=== PATIENT | male | born 1950 | race Caucasian/White ===

== ENCOUNTER 2018-08-18 18:34 | Emergency (ER) | payer OTHER ==
[~2018-08-18] VITALS: Ht 177.8 cm; Wt 100.0 kg
[~2018-08-18 18:34] MED LIST: METF-406 PO; ROSU40TA35 PO
[2018-08-18 18:39] VITALS: Ht 177.8 cm; Wt 100.0 kg
[2018-08-18] MEDS ORDERED: IBUP-1542 PO (21:23)
[2018-08-18 21:35] VITALS: BP 134/78; PULSE 71; RESP 18
--- NOTE | 2018-08-23 17:01 | ERD ---
ER Documentation Chief Complaint Chief Complaint SENT BY URGENT CARE TO R/O DVT HPI History of Present Illness: 67-year-old male reports a past medical history of sleep apnea, diabetes, hypertension, hyperlipidemia, cardiac stent placement x3 coming in today due to right calf swelling and redness. Patient was sent by urgent care to rule out DVT. D-dimer done in urgent care was 1260. Patient reports that he has had intermittent calf swelling over the past week after having an injury to the extremity in which he " banged it on something" . Patient denies recent travel or extended periods of being sedentary. Denies recent surgeries. At home pharmacological/nonpharmacological treatment for symptoms: Denies Denies social concerns; Denies recent foreign travel ROS All systems reviewed and are negative except as per history of present illness. Medications Home Meds Active Scripts Ibuprofen* (Motrin*) 600 Mg Tab, 600 MG PO Q6H PRN for PAIN/SWELLING/INFLAMMATION, #30 TAB Prov:CHEMO PAYNE V [employer] 08/18/18 Reported Medications Metformin Hcl* (Metformin Hcl* ER) 1,000 Mg Tab.er.24, 1000 MG PO BID 09/25/12 Rosuvastatin Calcium* (Crestor*) 40 Mg Tablet, 40 MG PO DAILY 09/25/12 Allergies Allergies: Coded Allergies: No Known Allergy (Verified Allergy, Unknown, 06/08/06) PMhx/Soc History of Surgery: Yes Hx Cardiac Disorders: Yes (3 CARDIAC STENT. HIGH CHOLESTEROL.) Hx Miscellaneous Medical Probl: Yes (DM. ) Hx Alcohol Use: Yes Hx Substance Use: No Hx Tobacco Use: No Smoking Status: Never smoker FmHx Family History: diabetes, coronary disease Physical Exam Physical Exam Const: No acute distress, afebrile Head: Atraumatic Eyes: Normal Conjunctiva ENT: Normal External Ears, Nose and Mouth. Neck: Full range of motion. No meningismus. Resp: Clear to auscultation bilaterally Cardio: Regular rate and rhythm, no murmurs Abd: Soft, non tender, non distended. No guarding, no masses, no rigidity Skin: No petechiae or rashes Back: No midline or flank tenderness Ext: No cyanosis; redness and swelling noted to right lower extremity particularly the calf, no warmth Neur: Awake and alert x3, speaking in clear sentences, no focal deficits or facial asymmetry Psych: Normal Mood and Affect Procedures/MDM ED COURSE: ED course includes a thorough examination and history. The patient was stable throughout ED course. I kept the patient and/or family informed of laboratory and diagnostic imaging results throughout the ED course. LABS: None MEDICATIONS GIVEN IN ER: Patient denies need for pain medication DIAGNOSTIC IMAGING: Read by radiologist. IMPRESSION: 1. Negative right lower extremity venous duplex. 2. Poorly visualized right peroneal vein. RPTAT: HLRS Physician Noah Date Time Electronically viewed and signed by Physician Noah on 08/18/2018 21:02 PROCEDURES: None. MEDICAL DECISION MAKING: Low suspicion for life-threatening medical emergency. Case discussed with ED Dr. Hannah. Although right peroneal vein is not visualized, agrees with study that patient does not present with signs and symptoms of DVT. patient presenting with constellation of symptoms likely representing swelling of right extremity secondary to injury of right leg as characterized by history, physical exam findings, imaging findings. Patient reassessment @ 2124: Results discussed. Patient hemodynamically stable. No respiratory distress, otherwise relatively well appearing and nontoxic. Disposition given. Patient educated on diagnoses, prescriptions, follow-up care, return precautions. Strict return precautions given for worsening condition; questions answered discharge. Patient verbalizes understanding of discharge instructions. PRESCRIPTIONS FOR HOME: Ibuprofen DISPOSITION: DISCHARGE At this time, patient is stable for discharge and outpatient management. I have instructed the patient to follow-up with his/her primary care physician in 1-2 days. I have discussed with the patient the possibility of needing to see a specialist for further workup and imaging studies if symptoms persist. I have instructed the patient to promptly return to the ER for any new or worsening symptoms including increased pain, fever, nausea, vomiting, weakness or LOC. The patient and/or family expressed understanding of and agreement with this plan. All questions were answered. Home care instructions were provided. DISCLAIMER: Inadvertent spelling and grammatical errors are likely due to EHR/dictation software use and do not reflect on the overall quality of patient care. Also, please note that the electronic time recorded on this note does not necessarily reflect the actual time of the patient encounter. Departure Diagnosis: Primary Impression: Swelling of right extremity Additional Impression: Injury of right leg Condition: Stable Patient Instructions: Peripheral Edema, Unilateral Referrals: [facility] YOU HAVE RECEIVED A MEDICAL SCREENING EXAM AND THE RESULTS INDICATE THAT YOU DO NOT HAVE A CONDITION THAT REQUIRES URGENT TREATMENT IN THE EMERGENCY DEPARTMENT. FURTHER EVALUATION AND TREATMENT OF YOUR CONDITION CAN WAIT UNTIL YOU ARE SEEN IN YOUR DOCTORS OFFICE WITHIN THE NEXT 1-2 DAYS. IT IS YOUR RESPONSIBILITY TO M RIN AN APPOINTMENT FOR FOLOW-UP CARE. IF YOU HAVE A PRIMARY DOCTOR --you should call your primary doctor and schedule an appointment IF YOU DO NOT HAVE A PRIMARY DOCTOR YOU CAN CALL OUR PHYSICIAN REFERRAL HOTLINE AT IF YOU CAN NOT AFFORD TO SEE A PHYSICIAN YOU CAN CHOSE FROM THE FOLLOWING [facility] [address] [facility]. [facility] [address] [facility]. [facility] [address] [facility] [address] [facility] [facility] [address] [facility]. [facility] [address] [facility]. [facility] YOU HAVE RECEIVED A MEDICAL SCREENING EXAM AND THE RESULTS INDICATE THAT YOU DO NOT HAVE A CONDITION THAT REQUIRES URGENT TREATMENT IN THE EMERGENCY DEPARTMENT. FURTHER EVALUATION AND TREATMENT OF YOUR CONDITION CAN WAIT UNTIL YOU ARE SEEN IN YOUR DOCTORS OFFICE WITHIN THE NEXT 1-2 DAYS. IT IS YOUR RESPONSIBILITY TO MAKE AN APPOINTMENT FOR FOLOW-UP CARE. IF YOU HAVE A PRIMARY DOCTOR --you should call your primary doctor and schedule and appointment IF YOU DO NOT HAVE A PRIMARY DOCTOR YOU CAN CALL OUR PHYSICIAN REFERRAL HOTLINE AT . IF YOU CAN NOT AFFORD TO SEE A PHYSICIAN YOU CAN CHOSE FROM THE FOLLOW[facility] INSTITUTIONS: [facility] [address] [place] [address] [facility] [address] [place] [address] [facility] + [facility] [address] [place] [address] Additional Instructions: Thank you very much for allowing us to participate in your care. Your health and safety is our top priority at [facility]. It is important to read all discharge instructions and education provided in your discharge packet. Call your primary care doctor TOMORROW for an appointment during the next 2-4 days and bring all the information and medications prescribed. Have prescriptions filled and follow precisely the directions on the label. --Ibuprofen is a medication that will help with pain/inflammation. At the dosage of 600 to 800 mg, this will help with inflammation/swelling. Take this medication as prescribed. If the symptoms get worse and your provider is unavailable, return to the Emergency Department immediately. CHEMO PAYNE NP Aug 23, 2018 17:01 GEMMA KULKARNI MD Aug 24, 2018 18:37
== END 2018-08-18 21:35 | disposition home or self-care (01) ==
LOC: FTE 18:34
DX: S89.91XA Unspecified injury of right lower leg, initial encounter (principal); I10 Essential (primary) hypertension; E11.9 Type 2 diabetes mellitus without complications; W22.8XXA Striking against or struck by other objects, initial encounter; Y92.9 Unspecified place or not applicable; Z79.84 Long term (current) use of oral hypoglycemic drugs; Z98.61 Coronary angioplasty status
CPT/HCPCS: 93971